=== PATIENT | male | born 1975 | race Caucasian/White ===

== ENCOUNTER 2020-02-11 14:13 | Emergency (ER) | payer OTHER ==
[2020-02-11 15:30] LABS: HEMATOCRIT 45.9 % (39.0-50.0); IMMATURE GRANULOCYTES 0.3 % (0.0-5.0); MEAN CELL VOLUME 86.6 fL CALC (80.0-100.0); MEAN CORPUSCULAR HGB 28.3 pG CALC (26.0-32.0); MEAN CORPUSCULAR HGB CONC 32.7 g/dL CAL (32.0-36.0); NEUT# 10.48 thou/uL (1.82-7.42); RED BLOOD COUNT 5.3 mill/uL (4.70-6.10); RED CELL DISTRI WIDTH 12.5 % (11.5-15.5)
[2020-02-11 15:43] LABS: ANION GAP 14 (6-22 (CALC)); BUN 16 mg/dL (9-20); BUN/CREATININE RATIO 16 (12-20 (CALC)); CARBON DIOXIDE 26 mmol/l (22-30); CHLORIDE 100 mmol/l (95-108); GFR > 60 ML/MIN (>=60 (CALC)); GFR FOR AFR.AMER. > 60 ML/MIN (>=60 (CALC)); POTASSIUM 4.6 mmol/l (3.5-5.1); SODIUM 135 mmol/l (137-146)
[2020-02-11] MEDS ORDERED: IBUPROFEN600 MG PO (17:23)
[2020-02-11] MEDS ORDERED: AMOXICILLIN/PO500 MG PO (17:23)
[2020-02-11 17:30] VITALS: BP 131/74
== END 2020-02-11 17:30 | disposition home or self-care (01) | DRG 603 ==
LOC: ED 14:13
PROVIDERS: Student in an Organized Health Care Education/Training Program
DX: L03.113 Cellulitis of right upper limb (principal); S61.451A Open bite of right hand, initial encounter; F17.220 Nicotine dependence, chewing tobacco, uncomplicated; W55.01XA Bitten by cat, initial encounter; Y92.89 Other specified places as the place of occurrence of the external cause; Y99.0 Civilian activity done for income or pay

== ENCOUNTER 2024-09-09 09:06 | Emergency (ER) | payer SELFPAY ==
[~2024-09-09] VITALS: Ht 188 cm; Wt 82.0 kg
[2024-09-09] VITALS (15 sets, daily range): BP systolic 106–131; BP diastolic 66–89
[~2024-09-09 09:06] MED LIST: AMOXICILLIN/PO500 MG PO; IBUPROFEN600 MG PO
[2024-09-09] MEDS ORDERED: methylPREDNISolone SODIUM SUCC 125 MG/2 ML SDV IV ONE (09:25)
[2024-09-09] MEDS ORDERED: IPRATROPIUM-Albuterol 0.5MG-2.5MG/3 ML NEB ONE ×2 (09:25)
[2024-09-09] MEDS ORDERED: IPRATROPIUM-Albuterol 0.5MG-2.5MG/3 ML ONE (09:26)
[2024-09-09 09:47] LABS: BASO% 0.5 % (0-3); HEMATOCRIT 50.7 % (39.0-50.0); IMMATURE GRANULOCYTES 0.5 % (0.0-5.0); MEAN CELL VOLUME 83.4 fL CALC (80.0-100.0); MEAN CORPUSCULAR HGB 28.9 pG CALC (26.0-32.0); MEAN CORPUSCULAR HGB CONC 34.7 g/dL CAL (32.0-36.0); NEUT# 2.37 thou/uL (1.82-7.42); NEUT% 54.4 % (42-76); RED BLOOD COUNT 6.08 mill/uL (4.70-6.10); RED CELL DISTRI WIDTH 12.4 % (11.5-15.5)
[2024-09-09 10:05] LABS: ALBUMIN 3.8 g/dL (3.2-5.0); ALKALINE PHOSPHATASE 75 u/l (38-126); ANION GAP 13 (6-22 (CALC)); BILIRUBIN, TOTAL 1.2 mg/dL (0.2-1.3); BUN 22 mg/dL (9-20); BUN/CREATININE RATIO 21 (12-20 (CALC)); CARBON DIOXIDE 24 mmol/l (22-30); CHLORIDE 97 mmol/l (95-108); CREATININE 1.1 mg/dL (0.7-1.3); ESTIMATED GFR 81 ML/MIN (>=90 (CALC)); HEMOGLOBIN 17.6 g/dl (14.0-18.0); POTASSIUM 4.6 mmol/l (3.5-5.1); SGOT/AST 42 u/l (17-59); SODIUM 130 mmol/l (137-146); TOTAL PROTEIN 6.8 g/dL (6.3-8.2)
[2024-09-09 10:06] LABS: LYMPH% 33.6 % (15-41)
[2024-09-09] MEDS ORDERED: SODIUM CHLORIDE 0.9% 1,000 ML IV ONE (10:35)
[2024-09-09] MEDS ORDERED: VENTOLIN HFA108 MCG PO (11:05)
[2024-09-09] MEDS ORDERED: LEVOFLOXACIN750 MG PO (11:05)
[2024-09-09] MEDS ORDERED: ZOFRAN4 MG/TAB PO (11:05)
== END 2024-09-09 12:54 | disposition home or self-care (01) | DRG 195 ==
LOC: ED 09:06
PROVIDERS: Family Medicine
DX: J18.9 Pneumonia, unspecified organism (principal)

== ENCOUNTER 2024-09-13 09:21 | Emergency (ER) | payer SELFPAY ==
[~2024-09-13] VITALS: Ht 188 cm; Wt 80.0 kg
[2024-09-13] VITALS (24 sets, daily range): BP systolic 104–131; BP diastolic 73–98
[~2024-09-13 09:21] MED LIST changes: +LEVOFLOXACIN750 MG PO; +VENTOLIN HFA108 MCG PO; +ZOFRAN4 MG/TAB PO
[2024-09-13 10:54] LABS: BASO% 0.4 % (0-3); EOS% 1.1 % (0-8); HEMOGLOBIN 17.7 g/dl (14.0-18.0); IMMATURE GRANULOCYTES 1.3 % (0.0-5.0); LYMPH% 10.7 % (15-41); MEAN CELL VOLUME 83.6 fL CALC (80.0-100.0); MEAN CORPUSCULAR HGB 28.5 pG CALC (26.0-32.0); MONO% 15.6 % (2-13); NEUT# 6.69 thou/uL (1.82-7.42); NEUT% 70.9 % (42-76); RED BLOOD COUNT 6.22 mill/uL (4.70-6.10); RED CELL DISTRI WIDTH 12.3 % (11.5-15.5)
[2024-09-13 10:55] LABS: URINE BLOOD DIPSTICK Negative (NEGATIVE); URINE GLUCOSE - DIPSTICK Negative (NEGATIVE); URINE KETONE 40 mg/dL (NEGATIVE); URINE LEUK ESTERASE Negative (NEGATIVE); URINE NITRITE - DIPSTICK Negative (Negative); URINE PH 6.5 (4.5-8.0); URINE PROTEIN - DIPSTICK 100 mg/dL (NEG-TRACE); URINE SPECIFIC GRAVITY >=1.030
[2024-09-13 11:00] LABS: URINE COLOR Brown
[2024-09-13 11:04] LABS: ALBUMIN 4.3 g/dL (3.2-5.0); BILIRUBIN, TOTAL 1.4 mg/dL (0.2-1.3); CREATININE 1.1 mg/dL (0.7-1.3); POTASSIUM 4.6 mmol/l (3.5-5.1); TOTAL PROTEIN 7.6 g/dL (6.3-8.2)
[2024-09-13 11:07] LABS: URINE MUCUS MODERATE hpf (NONE-FEW)
[2024-09-13] MEDS ORDERED: DIATRIZOATE MEGLUMINE & SODIUM 30 ML/BTL PO ONE (13:00)
[2024-09-13] MEDS ORDERED: METOCLOPRAMIDE HCL 10 MG/2 ML SDV IV ONE (15:50)
[2024-09-13] MEDS ORDERED: KETOROLAC TROMETHAMINE 30 MG/ML SDV IV ONE (15:50)
[2024-09-13] MEDS ORDERED: MAGNESIUM CITRATE 296 ML/BTL PO ONE (16:40)
[2024-09-13] MEDS ORDERED: GOLYTELY PO (17:17)
[2024-09-13] MEDS ORDERED: CITRATE OF MEGNESIA PO (17:17)
== END 2024-09-13 17:35 | disposition home or self-care (01) | DRG 392 ==
LOC: ED 09:21
PROVIDERS: Emergency Medicine
DX: K59.00 Constipation, unspecified (principal)
CPT/HCPCS: Q9967